=== PATIENT | male | born 1960 | race Caucasian/White ===

== ENCOUNTER 2018-09-15 06:34 | Emergency (ER) | payer OTHER ==
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
== END 2018-09-15 09:01 | disposition home or self-care (01) ==
LOC: ER 06:34
DX: M25.512 Pain in left shoulder (principal); V49.9XXA Car occupant (driver) (passenger) injured in unspecified traffic accident, initial encounter; Z88.2 Allergy status to sulfonamides; I10 Essential (primary) hypertension
CPT/HCPCS: 99283

== ENCOUNTER 2020-02-23 11:25 | Emergency (ER) | payer OTHER ==
[2020-02-23] MEDS ORDERED: HYDROCODONE/CHLORPHEN 5 ML/OSYR ONE (13:04)
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
--- NOTE | 2020-02-23 14:54 | ER ---
Nurse's Notes [facility] Name: Niall Perdue Age: 60 yrs Sex: Male : 1960 Arrival Date: 02/23/2020 Time: 11:28 Bed 17 Private MD: Demetri Kruse Diagnosis: Pneumonia due to SARS-associated coronavirus Presentation: 02/22 12:17 Chief complaint: Patient states: Diagnosed with COVID-19 at [place] [facility] approximately 1 aa5 week ago. Pt c/o non-productive cough, fever on and off up to 100.0*F, O2 sat 85-94% at home, and "not being able to take a deep breath without it making me cough". Pt denies nausea/vomiting/diarrhea, denies pain. 12:17 Coronavirus screen: Client presents with at least one sign or symptom that may indicate aa5 coronavirus-19. Standard/surgical mask placed on the client. Provider contacted for isolation considerations. Client reports previous positive COVID test result. Ebola Screen: Patient negative for fever greater than or equal to 101.5 degrees Fahrenheit, and additional compatible Ebola Virus Disease symptoms. Initial Sepsis Screen: Does the patient meet any 2 criteria? No. Patient's initial sepsis screen is negative. Does the patient have a suspected source of infection? Yes:. Risk Assessment: Do you want to hurt yourself or someone else? Patient reports no desire to harm self or others. Onset of symptoms was January 2020. 12:17 Acuity: RAYMOND 3 aa5 12:17 Method Of Arrival: Ambulatory aa5 Historical: - Allergies: 12:17 Sulfa (Sulfonamide Antibiotics); aa5 - PMHx: 12:17 psoriasis; Hypertension; aa5 - PSHx: 12:17 Knee surgery; back; Rotator cuff; Hernia repair; aa5 - Immunization history:: Adult Immunizations unknown. - Social history:: Smoking status: Patient denies any tobacco usage or history of. Screenin:25 Abuse screen: Denies threats or abuse. Denies injuries from another. Nutritional ca1 screening: No deficits noted. Tuberculosis screening: No symptoms or risk factors identified. Fall Risk None identified. Assessment: 12:25 General: Appears in no apparent distress. comfortable, Behavior is calm, cooperative, ca1 appropriate for age. Pain: Denies pain. Neuro: Level of Consciousness is awake, alert, obeys commands, Oriented to person, place, time, situation. Cardiovascular: Heart tones S1 S2 present Capillary refill < 3 seconds Patient's skin is warm and dry. Rhythm is regular. Respiratory: Airway is patent Respiratory effort is even, unlabored, Respiratory: Reports shortness of breath on exertion cough that is. GI: Abdomen is round non-distended, Bowel sounds present X 4 quads. Abd is soft and non tender X 4 quads. : No signs and/or symptoms were reported regarding the genitourinary system. EENT: No signs and/or symptoms were reported regarding the EENT system. Derm: Skin is intact, is healthy with good turgor, Skin is pink, warm \\T\\ dry. Musculoskeletal: Circulation, motion, and sensation intact. Capillary refill < 3 seconds. 14:04 Reassessment: Patient appears in no apparent distress at this time. Patient and/or ca1 family updated on plan of care and expected duration. Pain level reassessed. Patient is alert, oriented x 3, equal unlabored respirations, skin warm/dry/pink. 14:45 Reassessment: Patient appears in no apparent distress at this time. Patient is alert, ca1 oriented x 3, equal unlabored respirations, skin warm/dry/pink. 15:27 Reassessment: Patient appears in no apparent distress at this time. Patient is alert, ca1 oriented x 3, equal unlabored respirations, skin warm/dry/pink. Vital Signs: 12:17 BP 103 / 67; Pulse 87; Resp 16 S; Temp 99.5(O); Pulse Ox 94% on R/A; Weight 115.67 kg aa5 (R); Height 5 ft. 9 in. (175.26 cm) (R); Pain 0/10; 14:04 BP 108 / 62; Pulse 68; Resp 16 S; Pulse Ox 100% on R/A; ca1 14:45 BP 109 / 64; Pulse 69; Resp 18 S; Pulse Ox 95% on R/A; ca1 14:47 Pulse Ox 96% on R/A; jp3 15:27 BP 127 / 84; Pulse 73; Resp 16 S; Pulse Ox 97% on R/A; ca1 12:17 Body Mass Index 37.66 (115.67 kg, 175.26 cm) aa5 14:47 Walked pt around to see 02 saturation during movement jp3 ED Course: 11:28 Patient arrived in ED. ag5 11:28 Demetri Kruse MD is Private Physician. ag5 11:54 Angeline John FNP-C [facility]. snw 11:54 Dale Rodrigues MD is Attending Physician. snw 12:17 Arm band placed on Patient placed in an exam room, on a stretcher. aa5 12:21 Lisa Caro, CHARISMA is Primary Nurse. ca1 12:25 Patient has correct armband on for positive identification. Placed in gown. Bed in low ca1 position. Call light in reach. Side rails up X2. Pulse ox on. NIBP on. Warm blanket given. 12:25 No provider procedures requiring assistance completed. ca1 12:29 Triage completed. aa5 12:55 Initial lab(s) drawn, by me, held in ED. Inserted saline lock: 20 gauge in right ca1 antecubital area, using aseptic technique. Blood collected. 13:36 CT Chest For PE Angio In Process Unspecified. EDMS 14:53 Demetri Kruse MD is Referral Physician. snw 15:28 IV discontinued, intact, bleeding controlled, No redness/swelling at site. Pressure ca1 dressing applied. Administered Medications: 12:50 Drug: Tussionex Pennkinetic ER 5 ml Route: PO; ca1 14:47 Follow up: Response: No adverse reaction; Marked relief of symptoms ca1 15:19 Drug: SOLU-Medrol 80 mg {Note: given IV per provider, RAC.} Route: IM; Site: Other; ca1 Outcome: 14:53 Discharge ordered by . snw 15:28 Discharged to home ambulatory. ca1 15:28 Condition: stable 15:28 Discharge instructions given to patient, Instructed on discharge instructions, follow up and referral plans. medication usage, Demonstrated understanding of instructions, follow-up care, medications, Prescriptions given X 1. 15:28 Patient left the ED. ca1 Signatures: Dispatcher [employer] EDMS Angeline John FNP-C [employer] Breanna Pederson, RN RN aa5 Rell Prajapati jp3 Lisa Caro RN RN ca1 Joon Castillo ag5
--- NOTE | 2020-02-23 14:54 | EDPHYS ---
Physician Documentation [facility] Name: Niall Perdue Age: 60 yrs Sex: Male : 1960 Arrival Date: 02/23/2020 Time: 11:28 Bed 17 Private MD: Demetri Kruse ED Physician Dale Rodrigues HPI: 02/22 15:02 This 60 yrs old Male presents to ER via Ambulatory with complaints of snw Breathing Difficulty, COVID+. 15:02 The patient has shortness of breath at rest. Onset: The symptoms/episode began/occurred snw dx with CoVid 19 last week. Finished Z-max and Decadron. + fever, painful cough continues. Duration: The symptoms are continuous. Associated signs and symptoms: Pertinent positives: chest pain, non-productive cough, fever. Severity of symptoms: At their worst the symptoms were moderate. The patient has experienced a previous episode. dx with CoVid. Historical: - Allergies: 12:17 Sulfa (Sulfonamide Antibiotics); aa5 - PMHx: 12:17 psoriasis; Hypertension; aa5 - PSHx: 12:17 Knee surgery; back; Rotator cuff; Hernia repair; aa5 - Immunization history:: Adult Immunizations unknown. - Social history:: Smoking status: Patient denies any tobacco usage or history of. ROS: 15:01 Eyes: Negative for injury, pain, redness, and discharge, ENT: Negative for injury, snw pain, and discharge, Neck: Negative for injury, pain, and swelling, Abdomen/GI: Negative for abdominal pain, nausea, vomiting, diarrhea, and constipation, Back: Negative for injury and pain, : Negative for injury, bleeding, discharge, and swelling, MS/Extremity: Negative for injury and deformity, Skin: Negative for injury, rash, and discoloration, Neuro: Negative for headache, weakness, numbness, tingling, and seizure. 15:01 Constitutional: Positive for body aches, fever, malaise. 15:01 Cardiovascular: Positive for chest pain, with cough. 15:01 Respiratory: Positive for cough, shortness of breath, at rest. Exam: 14:23 Head/Face: Normocephalic, atraumatic. Eyes: Pupils equal round and reactive to light, snw extra-ocular motions intact. Lids and lashes normal. Conjunctiva and sclera are non-icteric and not injected. Cornea within normal limits. Periorbital areas with no swelling, redness, or edema. ENT: Nares patent. No nasal discharge, no septal abnormalities noted. Tympanic membranes are normal and external auditory canals are clear. Oropharynx with no redness, swelling, or masses, exudates, or evidence of obstruction, uvula midline. Mucous membranes moist. Neck: Trachea midline, no thyromegaly or masses palpated, and no cervical lymphadenopathy. Supple, full range of motion without nuchal rigidity, or vertebral point tenderness. No Meningismus. Chest/axilla: Normal chest wall appearance and motion. Nontender with no deformity. No lesions are appreciated. Cardiovascular: Regular rate and rhythm with a normal S1 and S2. No gallops, murmurs, or rubs. Normal PMI, no JVD. No pulse deficits. Abdomen/GI: Soft, non-tender, with normal bowel sounds. No distension or tympany. No guarding or rebound. No evidence of tenderness throughout. Back: No spinal tenderness. No costovertebral tenderness. Full range of motion. Skin: Warm, dry with normal turgor. Normal color with no rashes, no lesions, and no evidence of cellulitis. MS/ Extremity: Pulses equal, no cyanosis. Neurovascular intact. Full, normal range of motion. Neuro: Awake and alert, GCS 15, oriented to person, place, time, and situation. Cranial nerves II-XII grossly intact. Motor strength 5/5 in all extremities. Sensory grossly intact. Cerebellar exam normal. Normal gait. Psych: Awake, alert, with orientation to person, place and time. Behavior, mood, and affect are within normal limits. 14:23 Constitutional: The patient appears alert, awake, anxious, uncomfortable. 14:23 Respiratory: the patient does not display signs of respiratory distress, Respirations: shallow respirations, that is moderate, Breath sounds: bronchial sounds, that are mild, are heard diffusely. Vital Signs: 12:17 BP 103 / 67; Pulse 87; Resp 16 S; Temp 99.5(O); Pulse Ox 94% on R/A; Weight 115.67 kg aa5 (R); Height 5 ft. 9 in. (175.26 cm) (R); Pain 0/10; 14:04 BP 108 / 62; Pulse 68; Resp 16 S; Pulse Ox 100% on R/A; ca1 14:45 BP 109 / 64; Pulse 69; Resp 18 S; Pulse Ox 95% on R/A; ca1 14:47 Pulse Ox 96% on R/A; jp3 15:27 BP 127 / 84; Pulse 73; Resp 16 S; Pulse Ox 97% on R/A; ca1 12:17 Body Mass Index 37.66 (115.67 kg, 175.26 cm) aa5 14:47 Walked pt around to see 02 saturation during movement jp3 MDM: 12:52 Patient medically screened. snw 15:02 Data reviewed: vital signs, nurses notes. Data interpreted: Pulse oximetry: on room air snw is 96 %. Interpretation: acceptable. Counseling: I had a detailed discussion with the patient and/or guardian regarding: the historical points, exam findings, and any diagnostic results supporting the discharge/admit diagnosis, radiology results, the need for outpatient follow up, to return to the emergency department if symptoms worsen or persist or if there are any questions or concerns that arise at home. Special discussion: Based on the history and exam findings, there is no indication for further emergent testing or inpatient evaluation. I discussed with the patient/guardian the need to see the primary care provider for further evaluation of the symptoms. 02/22 12:46 Order name: CT Chest For PE Angio; Complete Time: 14:06 snw Administered Medications: 12:50 Drug: Tussionex Pennkinetic ER 5 ml Route: PO; ca1 14:47 Follow up: Response: No adverse reaction; Marked relief of symptoms ca1 15:19 Drug: SOLU-Medrol 80 mg {Note: given IV per provider, RAC.} Route: IM; Site: Other; ca1 Disposition: 18:04 Co-signature as Attending Physician, Dale Rodrigues MD I agree with the assessment and kdr plan of care. Disposition: 02/23/20 14:53 Discharged to Home. Impression: Pneumonia due to SARS-associated coronavirus. - Condition is Stable. - Discharge Instructions: Severe Acute Respiratory Syndrome (SARS), Aspirin and Your Heart, Rehydration, Adult, COVID-19. - Prescriptions for Prednisone 20 mg Oral Tablet - take 2 tablet by ORAL route once daily for 5 days; 10 tablet. - Medication Reconciliation Form, Thank You Letter, Antibiotic Education, Prescription Opioid Use form. - Follow up: Demetri Kruse MD; When: 7 - 10 days; Reason: Recheck today's complaints, Continuance of care, Re-evaluation by your physician. Follow up: Emergency Department; When: As needed; Reason: Worsening of condition. Signatures: Dispatcher [employer] EDMS Dale Rodrigues MD MD [facility] Angeline John, CITY DRIVER-C CITY DRIVER-Csnw Breanna Pederson, RN RN aa5 Lisa Caro RN RN ca1 Corrections: (The following items were deleted from the chart) 15:28 14:53 02/23/2020 14:53 Discharged to Home. Impression: Pneumonia due to SARS-associated ca1 coronavirus. Condition is Stable. Forms are Medication Reconciliation Form, Thank You Letter, Antibiotic Education, Prescription Opioid Use. Follow up: Demetri Kruse; When: 7 - 10 days; Reason: Recheck today's complaints, Continuance of care, Re-evaluation by your physician. Follow up: Emergency Department; When: As needed; Reason: Worsening of condition. snw
[2020-02-23] MEDS ORDERED: METHYLPREDNISOLONE 40 MG INJ ONE (15:31)
[2020-02-23 15:34] VITALS: TEMP 99.5
[2020-02-23 15:38] VITALS: BP 127/84; O2SAT 97
== END 2020-02-23 15:28 | disposition home or self-care (01) ==
LOC: ER 11:25
DX: U07.1 COVID-19 (principal); J12.89 Other viral pneumonia; I10 Essential (primary) hypertension; Z88.2 Allergy status to sulfonamides
CPT/HCPCS: 82565; 71275; 96372; 99284; Q9967; J2920

== ENCOUNTER 2020-02-25 10:02 | Emergency (ER) | payer OTHER ==
[2020-02-25 12:29] LABS: Absolute Lymphocytes (CBC) 0.6 K/uL (0.7-4.9); Hematocrit 43.6 % (39.6-49.0); Lymphocytes % 4.1 % (15.3-44.8); MPV 7.3 fL (7.6-11.3); RBC Red Blood Cell Count 4.99 M/uL (4.33-5.43)
[2020-02-25 12:50] LABS: Albumin 3.3 g/dL (3.4-5.0); Bilirubin Total 0.5 mg/dL (0.2-1.0); C-Reactive Protein 60.9 mg/L (<3.00); Protein, Total 7.5 g/dL (6.4-8.2)
[2020-02-25] MEDS ORDERED: NA CHLORIDE 0.9% 1,000 ML ONE (13:14)
--- NOTE | 2020-02-25 13:19 | RAD REPORT ---
EXAM DESCRIPTION: RAD - Chest Single View - 02/25/2020 12:21 pm CLINICAL HISTORY: COUGH, COVID positive COMPARISON: Two view chest January 2019 TECHNIQUE: AP portable chest image was obtained 02/25/2020 12:21 pm . FINDINGS: Lung volumes are very low. Interstitial and alveolar opacification is scattered in both malina ng marroquin generally sparing each apex. This is believed to be true airspace disease and not artifact of shallow inspiration. Given the provided history, COVID-19 pneumonia is most likely. Trachea is mid line. Heart and vasculature are normal. No measurable pleural effusion and no pneumothorax. No acute bony abnormality seen. No acute aortic findings suspected. IMPRESSION: Bilateral airspace disease. Given the provided history this is most likely COVID-19 pneu monia.
[2020-02-25 13:20] LABS: Blood Morphology Comment NOT SEEN (NOT SEEN); Platelet Estimate ADEQ; White Blood Cell Scan OK (OK)
--- NOTE | 2020-02-25 15:23 | EDPHYS ---
Physician Documentation [facility] Name: Niall Perdue Age: 60 yrs Sex: Male : 1960 Arrival Date: 02/25/2020 Time: 10:02 Bed DIS13 Private MD: ED Physician Mauro Claire HPI: 02/24 10:56 This 60 yrs old Male presents to ER via Ambulatory with complaints of jmm Shortness Of Breath - covid+. 10:56 The patient has shortness of breath at rest. Onset: The symptoms/episode began/occurred jmm gradually. Duration: The symptoms are continuous. The patient's shortness of breath is aggravated by nothing, is alleviated by nothing. This is a 60 year old male with a history of htn that presents to the ED with complaints of ongoing shortness of breath. Patient states he was diagnosed with covid 19 roughly 10 days ago. Patient is taking prednisone with little relief of symptoms. Patient home pulse ox was in the mid 80's. . Historical: - Allergies: 10:54 Sulfa (Sulfonamide Antibiotics); iw - Home Meds: 15:12 BP med [Active]; Stelara subcutaneous [Active]; ae4 - PMHx: 10:54 Hypertension; psoriasis; iw - PSHx: 10:54 Knee surgery; back; Rotator cuff; Hernia repair; iw - Immunization history:: Adult Immunizations up to date. - Social history:: Smoking status: Patient denies any tobacco usage or history of. ROS: 10:56 Constitutional: Positive for body aches, chills. jmm 10:56 Respiratory: Positive for cough, shortness of breath. 10:56 Abdomen/GI: Negative for vomiting. 10:56 All other systems are negative. Exam: 10:56 Constitutional: This is a well developed, well nourished patient who is awake, alert, jmm and in no acute distress. Head/Face: atraumatic. Eyes: EOMI, no conjunctival erythema appreciated ENT: Moist Mucus Membranes Neck: Trachea midline, Supple Chest/axilla: Normal chest wall appearance and motion. Cardiovascular: Regular rate and rhythm. No edema appreciated Respiratory: Normal respirations, no respiratory distress appreciated Abdomen/GI: Non distended, soft Back: Normal ROM Skin: General appearance color normal MS/ Extremity: Moves all extremities, no obvious deformities appreciated, no edema noted to the lower extremities Neuro: Awake and alert, normal gait Psych: Behavior is normal, Mood is normal, Patient is cooperative and pleasant Vital Signs: 10:51 BP 109 / 67; Pulse 70; Resp 18 S; Temp 96.7; Pulse Ox 94% on R/A; Weight 117.93 kg; iw Height 5 ft. 9 in. (175.26 cm); 13:18 BP 104 / 62; Pulse 63; Resp 16; Pulse Ox 95% on R/A; ae4 14:42 BP 110 / 61; Pulse 65; Resp 17; Pulse Ox 96% on R/A; ae4 15:12 BP 177 / 82; Pulse 85; Resp 22; Pulse Ox 100% on R/A; ae4 10:51 Body Mass Index 38.39 (117.93 kg, 175.26 cm) iw MDM: 11:14 Patient medically screened. [facility] 15:21 Data reviewed: vital signs, nurses notes. ED course: Patient is alert and non toxic in [facility] appearance in the ED. Patient is advised to follow up with pcp for reevaluation. Patient given strict return precautions. patient understood and agrees with the plan of care. . 02/24 10:56 Order name: CBC with Diff; Complete Time: 13:24 [facility] 02/24 10:56 Order name: CMP; Complete Time: 12:52 [facility] 02/24 10:56 Order name: CRP; Complete Time: 12:52 [facility] 02/24 10:56 Order name: Chest Single View XRAY; Complete Time: 13:24 [facility] 02/24 13:21 Order name: CBC Smear Scan; Complete Time: 13:24 [facility] 02/24 10:56 Order name: Saline Lock; Complete Time: 13:24 [facility] Administered Medications: 13:00 Drug: NS 0.9% 1000 ml Route: IV; Rate: 1 bolus; Site: left antecubital; ae4 Disposition: 16:37 Co-signature as Attending Physician, Mauro Claire MD. rn Disposition: 02/25/20 15:22 Discharged to Home. Impression: Dehydration, Coronavirus infection, unspecified. - Condition is Stable. - Discharge Instructions: Dehydration, Adult, COVID-19. - Medication Reconciliation Form, Thank You Letter, Antibiotic Education, Prescription Opioid Use form. - Follow up: Private Physician; When: 2 - 3 days; Reason: Recheck today's complaints, Continuance of care, Re-evaluation by your physician. - Notes: Please take -10,000 IU of Vitamin D3 daily -1000 MG of NAC twice a day -500 MG of Quercetin twice a day -50 mg of Zinc daily Signatures: Dispatcher [employer] EDMS Chandana Zaragoza PA PA jmm Williams, Irene, RN RN iw Nieto, Roman, MD MD rn Elliott, Andrea, RN RN ae4 Corrections: (The following items were deleted from the chart) 16:11 15:22 02/25/2020 15:22 Discharged to Home. Impression: Dehydration; Coronavirus ae4 infection, unspecified. Condition is Stable. Forms are Medication Reconciliation Form, Thank You Letter, Antibiotic Education, Prescription Opioid Use. Follow up: Private Physician; When: 2 - 3 days; Reason: Recheck today's complaints, Continuance of care, Re-evaluation by your physician. david
--- NOTE | 2020-02-25 15:23 | ER ---
Nurse's Notes [facility] Name: Niall Perdue Age: 60 yrs Sex: Male : 1960 Arrival Date: 02/25/2020 Time: 10:02 Bed DIS13 Private MD: Diagnosis: Dehydration;Coronavirus infection, unspecified Presentation: 02/24 10:52 Chief complaint: Patient states: tested positive for COVID Wednesday before Jagruti, iw has been SOB and cough. Coronavirus screen: Client reports previous positive COVID test result. Ebola Screen: Patient negative for fever greater than or equal to 101.5 degrees Fahrenheit, and additional compatible Ebola Virus Disease symptoms Patient denies exposure to infectious person. Patient denies travel to an Ebola-affected area in the 21 days before illness onset. No symptoms or risks identified at this time. Initial Sepsis Screen: Does the patient meet any 2 criteria? No. Patient's initial sepsis screen is negative. Does the patient have a suspected source of infection? No. Patient's initial sepsis screen is negative. Risk Assessment: Do you want to hurt yourself or someone else? Patient reports no desire to harm self or others. 10:52 Method Of Arrival: Ambulatory iw 10:52 Acuity: RAYMOND 3 iw 19:17 Onset of symptoms was February 23, 2020 at 08:00. ae4 Triage Assessment: 11:30 General: Behavior is calm, cooperative. Respiratory: Reports shortness of breath at ae4 rest on exertion Onset: The symptoms/episode began/occurred gradually, the patient has moderate shortness of breath. 16:11 General: Appears. ae4 Historical: - Allergies: 10:54 Sulfa (Sulfonamide Antibiotics); iw - Home Meds: 15:12 BP med [Active]; Stelara subcutaneous [Active]; ae4 - PMHx: 10:54 Hypertension; psoriasis; iw - PSHx: 10:54 Knee surgery; back; Rotator cuff; Hernia repair; iw - Immunization history:: Adult Immunizations up to date. - Social history:: Smoking status: Patient denies any tobacco usage or history of. Screenin:45 Abuse screen: Denies threats or abuse. Nutritional screening: No deficits noted. ae4 Tuberculosis screening: No symptoms or risk factors identified. Fall Risk None identified. Assessment: 11:00 General: Appears in no apparent distress. comfortable, obese, Behavior is calm, ae4 cooperative. Neuro: Level of Consciousness is awake, alert, obeys commands, Oriented to person, place, time, situation, Appropriate for age. Cardiovascular: Patient's skin is warm and dry. Respiratory: Airway is patent Respiratory effort is even, unlabored, Respiratory pattern is regular, symmetrical, Breath sounds are diminished bilaterally. GI: Abdomen is round obese. : No signs and/or symptoms were reported regarding the genitourinary system. EENT: No signs and/or symptoms were reported regarding the EENT system. Derm: Skin is pale. Musculoskeletal: Reports Patient reports generalized weakness and fatigue. 13:33 Respiratory: Airway is patent. ae4 13:51 Reassessment: Provider at bedside discussing plan of care. ae4 15:02 Reassessment: Urinal provided for patient to urinate. ae4 15:11 Pain: Denies pain. Cardiovascular: Rhythm is regular. ae4 Vital Signs: 10:51 BP 109 / 67; Pulse 70; Resp 18 S; Temp 96.7; Pulse Ox 94% on R/A; Weight 117.93 kg; iw Height 5 ft. 9 in. (175.26 cm); 13:18 BP 104 / 62; Pulse 63; Resp 16; Pulse Ox 95% on R/A; ae4 14:42 BP 110 / 61; Pulse 65; Resp 17; Pulse Ox 96% on R/A; ae4 15:12 BP 177 / 82; Pulse 85; Resp 22; Pulse Ox 100% on R/A; ae4 10:51 Body Mass Index 38.39 (117.93 kg, 175.26 cm) iw ED Course: 10:02 Patient arrived in ED. as 10:45 Chandana Zaragoza PA is PHCP. jmm 10:45 Mauro Claire MD is Attending Physician. jmm 10:53 Triage completed. iw 11:45 Bed in low position. Call light in reach. Side rails up X 1. Pulse ox on. NIBP on. Warm ae4 blanket given. 12:21 Murray Cornejo, CHARISMA is Primary Nurse. ae4 12:21 Chest Single View XRAY In Process Unspecified. EDMS 13:33 Inserted saline lock: 18 gauge in left antecubital area, using aseptic technique. ae4 ,using aseptic technique. By [facility] Blood collected. 14:43 Arm band placed on. ae4 16:10 No provider procedures requiring assistance completed. IV discontinued, intact, ae4 bleeding controlled, No redness/swelling at site. Pressure dressing applied. Administered Medications: 13:00 Drug: NS 0.9% 1000 ml Route: IV; Rate: 1 bolus; Site: left antecubital; ae4 Outcome: 15:22 Discharge ordered by MD. hernandez 16:11 Patient left the ED. ae4 16:11 Condition: stable ae4 16:11 Discharge instructions given to patient, Instructed on discharge instructions, follow up and referral plans. Demonstrated understanding of instructions. 19:16 Discharged to ae4 Signatures: Dispatcher [employer] EDMS Chandana Zaragoza PA PA jmm Martinez, Amelia as Williams, Irene, CHARISMA RN Murray Cornejo RN RN ae4 Corrections: (The following items were deleted from the chart) 10:54 10:51 Resp 18bpm; Spontaneous; Pulse Ox 94% RA; Temp 96.7F; iw antonia
[2020-02-25 16:19] VITALS: TEMP 96.7
[2020-02-25 16:23] VITALS: BP 177/82; O2SAT 100
== END 2020-02-25 16:11 | disposition home or self-care (01) ==
LOC: ER 10:02
DX: E86.0 Dehydration (principal); Z86.19 Personal history of other infectious and parasitic diseases; I10 Essential (primary) hypertension; Z88.2 Allergy status to sulfonamides
CPT/HCPCS: 36415; 71045; 80053; 85025; 86140; 99284; J7030

== ENCOUNTER 2020-02-26 21:59 | Inpatient (IN) | payer OTHER ==
[2020-02-26 23:33] LABS: Absolute Lymphocytes (CBC) 0.9 K/uL (0.7-4.9); Basophils % 0.1 % (0-1.3); Hematocrit 41.8 % (39.6-49.0); Lymphocytes % 7.8 % (15.3-44.8); MPV 7.1 fL (7.6-11.3); Protime INR 1.08
[2020-02-26] MEDS ORDERED: METHYLPREDNISOLONE 125 MG INJ ONE (23:39)
[2020-02-26 23:56] LABS: ALT/SGPT 17 U/L (12-78); AST/SGOT 41 U/L (15-37); Albumin 2.8 g/dL (3.4-5.0); Alkaline Phosphatase 56 U/L (45-117); BUN Blood Urea Nitrogen 21 mg/dL (7-18); Bicarbonate 24 mmol/L (21-32); Bilirubin Direct 0.1 mg/dL (0-0.2); Bilirubin Total 0.5 mg/dL (0.2-1.0); Ferritin 527.1 ng/mL (26-388); Glucose Level 125 mg/dL (74-106); Magnesium 2.4 mg/dL (1.8-2.4); NT PRO-BNP 174 pg/mL (<125); Potassium 4.3 mmol/L (3.5-5.1); Protein, Total 6.9 g/dL (6.4-8.2); Sodium Level 135 mmol/L (136-145); Troponin (Emerg Dept Use Only) < 0.02 ng/mL (0.0-0.045)
--- NOTE | 2020-02-27 00:13 | ER ---
Nurse's Notes [facility] Name: Niall Perdue Age: 60 yrs Sex: Male : 1960 Arrival Date: 02/26/2020 Time: 22:01 Bed 16 Private MD: Diagnosis: Pneumonia due to other specified infectious organisms;Coronavirus infection, unspecified;Hypoxemia Presentation: 02/25 22:00 Chief complaint: EMS states: PT tested covid positive on the . Has been complaining jb4 of shortness of breath since and tonight it got worse. He was in the low 80's at his home on room air. 22:00 Coronavirus screen: Client presents with at least one sign or symptom that may indicate jb4 coronavirus-19. Standard/surgical mask placed on the client. Client reports previous positive COVID test result. Ebola Screen: No symptoms or risks identified at this time. Initial Sepsis Screen: Does the patient meet any 2 criteria? No. Patient's initial sepsis screen is negative. Does the patient have a suspected source of infection? No. Patient's initial sepsis screen is negative. Risk Assessment: Do you want to hurt yourself or someone else? Patient reports no desire to harm self or others. Onset of symptoms was February 17, 2020. Transition of care: patient was not received from another setting of care. 22:00 Method Of Arrival: EMS: [facility] jb4 22:00 Acuity: RAYMOND 3 jb4 Historical: - Allergies: 22:00 Sulfa (Sulfonamide Antibiotics); jb4 - Home Meds: 22:00 Stelara subcutaneous [Active]; Micardis Oral [Active]; jb4 - PMHx: 22:00 Hypertension; psoriasis; Hernia; jb4 - PSHx: 22:00 Knee surgery; Hernia repair; Rotator cuff; back; jb4 - Immunization history:: Adult Immunizations up to date. - Social history:: Smoking status: Patient denies any tobacco usage or history of. Patient/guardian denies using alcohol, street drugs. Screenin:00 Abuse screen: Denies threats or abuse. Nutritional screening: No deficits noted. jb4 Tuberculosis screening: No symptoms or risk factors identified. Fall Risk None identified. Assessment: 22:00 General: Appears in no apparent distress. uncomfortable, Behavior is calm, cooperative, jb4 appropriate for age. Pain: Denies pain. Neuro: Level of Consciousness is awake, alert, obeys commands, Oriented to person, place, time, situation. Cardiovascular: Patient's skin is warm and dry. Respiratory: Airway is patent Respiratory effort is even, unlabored, Respiratory pattern is regular, symmetrical, Breath sounds with crackles bilaterally. GI: No signs and/or symptoms were reported involving the gastrointestinal system. : No signs and/or symptoms were reported regarding the genitourinary system. EENT: No signs and/or symptoms were reported regarding the EENT system. Derm: Skin is intact, Skin is pink, warm \T\ dry. Musculoskeletal: Circulation, motion, and sensation intact. Range of motion: intact in all extremities. 23:00 Reassessment: Patient appears in no apparent distress at this time. Patient and/or jb4 family updated on plan of care and expected duration. Pain level reassessed. Patient is alert, oriented x 3, equal unlabored respirations, skin warm/dry/pink. 02/26 00:01 Reassessment: Patient appears in no apparent distress at this time. Patient and/or jb4 family updated on plan of care and expected duration. Pain level reassessed. Patient is alert, oriented x 3, equal unlabored respirations, skin warm/dry/pink. 01:00 Reassessment: Patient appears in no apparent distress at this time. Patient and/or jb4 family updated on plan of care and expected duration. Pain level reassessed. Patient is alert, oriented x 3, equal unlabored respirations, skin warm/dry/pink. 02:00 Reassessment: Patient appears in no apparent distress at this time. Patient and/or jb4 family updated on plan of care and expected duration. Pain level reassessed. Patient is alert, oriented x 3, equal unlabored respirations, skin warm/dry/pink. Vital Signs: 02/25 22:00 BP 113 / 53; Pulse 66; Resp 20 S; Temp 97.6(TE); Pulse Ox 87% on R/A; Weight 113.4 kg jb4 (R); Height 5 ft. 9 in. (175.26 cm) (R); Pain 0/10; 02/26 00:01 BP 103 / 67; Pulse 62; Resp 20; Pulse Ox 95% on NC; jb4 01:45 BP 140 / 79; Pulse 56; Resp 16; Pulse Ox 97% on NC; jb4 02:30 BP 130 / 87; Pulse 63; Resp 16; Pulse Ox 95% on NC; jb4 02/25 22:00 Body Mass Index 36.92 (113.40 kg, 175.26 cm) jb4 ED Course: 02/25 22:00 Patient has correct armband on for positive identification. Placed in gown. Bed in low jb4 position. Call light in reach. Side rails up X 1. Pulse ox on. NIBP on. 22:01 Patient arrived in ED. cl3 22:11 Esdras Pepe, RN is Primary Nurse. jb4 22:17 Triage completed. jb4 22:18 Arm band placed on right wrist. jb4 22:20 Vijay Bender PA is PHCP. cp 22:20 Vijay Rivera MD is Attending Physician. cp 22:43 XRAY Chest (1 view) In Process Unspecified. EDMS 02/26 00:11 Yehuda Garay is Hospitalizing Provider. cp 02:00 No provider procedures requiring assistance completed. Patient admitted, IV remains in jb4 place. Administered Medications: 02/25 23:41 Drug: SOLU-Medrol 125 mg Route: IVP; Site: left antecubital; jb4 02/26 00:10 Follow up: Response: No adverse reaction jb4 00:52 Drug: LevaQUIN 750 mg Volume: 150 ml; Route: IVPB; Infused Over: 90 mins; Site: left jb4 antecubital; 02:22 Follow up: Response: No adverse reaction; IV Status: Completed infusion; IV Intake: jb4 150ml Intake: 02:22 IV: 150ml; Total: 150ml. jb4 Outcome: 00:12 Decision to Hospitalize by Provider. cp 02:00 Admitted to ER Hold. Please see [facility] for further documentation. jb4 02:00 Condition: stable 02:00 Discharge instructions given to patient, Instructed on the need for admit, Demonstrated understanding of instructions. 05:30 Discharge instructions given to patient, Instructed on the need for admit, Demonstrated jb4 understanding of instructions. 05:30 Admitted to Tele accompanied by nurse, via stretcher, room 431, with oxygen, with jb4 chart, Report called to CHARISMA Khan 05:30 Condition: stable 05:31 Patient left the ED. mg2 Signatures: Dispatcher [employer] EDMS Vijay Bender PA PA cp Bryson, James, RN RN jb4 Victoriano Lisa, RN RN mg2 Edi Dewitt cl3
--- NOTE | 2020-02-27 00:14 | EDPHYS ---
Physician Documentation [facility] Name: Niall Perdue Age: 60 yrs Sex: Male : 1960 Arrival Date: 02/26/2020 Time: 22:01 Bed 16 Private MD: ED Physician Vijay Rivera HPI: 02/25 22:30 This 60 yrs old Male presents to ER via EMS with complaints of Low 02. cp 22:30 The patient or guardian reports cough, described as moderate, with productive sputum, cp that is purulent, difficulty breathing. Onset: The symptoms/episode began/occurred gradually, and became worse today. 22:30 Associated signs and symptoms: Pertinent positives: fever, Pertinent negatives: chest cp pain, diarrhea, vomiting. Historical: - Allergies: 22:00 Sulfa (Sulfonamide Antibiotics); jb4 - Home Meds: 22:00 Stelara subcutaneous [Active]; Micardis Oral [Active]; jb4 - PMHx: 22:00 Hypertension; psoriasis; Hernia; jb4 - PSHx: 22:00 Knee surgery; Hernia repair; Rotator cuff; back; jb4 - Immunization history:: Adult Immunizations up to date. - Social history:: Smoking status: Patient denies any tobacco usage or history of. Patient/guardian denies using alcohol, street drugs. ROS: 22:35 Respiratory: Positive for cough, shortness of breath, at rest. cp 22:35 Eyes: Negative for injury, pain, redness, and discharge. cp 22:35 Constitutional: Negative for body aches, chills, fever, poor PO intake. 22:35 ENT: Negative for ear pain, sore throat, difficulty swallowing, difficulty handling secretions. 22:35 Cardiovascular: Negative for chest pain, edema, palpitations. 22:35 Abdomen/GI: Negative for abdominal pain, nausea, vomiting, and diarrhea. 22:35 Back: Negative for radiated pain. 22:35 Neuro: Negative for altered mental status, headache, weakness. 22:35 All other systems are negative. Exam: 22:45 Constitutional: The patient appears alert, awake, non-diaphoretic, non-toxic, well cp developed, well nourished, in obvious distress, moderately distressed. 22:45 Head/Face: Normocephalic, atraumatic. cp 23:42 ECG was reviewed by the Attending Physician. Vital Signs: 22:00 BP 113 / 53; Pulse 66; Resp 20 S; Temp 97.6(TE); Pulse Ox 87% on R/A; Weight 113.4 kg jb4 (R); Height 5 ft. 9 in. (175.26 cm) (R); Pain 0/10; 02/26 00:01 BP 103 / 67; Pulse 62; Resp 20; Pulse Ox 95% on NC; jb4 01:45 BP 140 / 79; Pulse 56; Resp 16; Pulse Ox 97% on NC; jb4 02:30 BP 130 / 87; Pulse 63; Resp 16; Pulse Ox 95% on NC; jb4 02/25 22:00 Body Mass Index 36.92 (113.40 kg, 175.26 cm) jb4 MDM: 02/25 22:21 Patient medically screened. 02/26 00:10 Physician consultation: Reji CERVANTES was contacted at 00:10, regarding admission, cp to the telemetry unit. patient's condition, and will see patient in ED, shortly. 00:10 Data reviewed: vital signs, nurses notes, lab test result(s), EKG, radiologic studies, cp plain films. 00:10 Test interpretation: by ED physician or midlevel provider: ECG. Counseling: I had a cp detailed discussion with the patient and/or guardian regarding: the historical points, exam findings, and any diagnostic results supporting the discharge/admit diagnosis, lab results, radiology results, the need for further work-up and treatment in the hospital. 02/25 22:22 Order name: Basic Metabolic Panel; Complete Time: 00:00 cp 02/26 00:08 Interpretation: Normal except: NA 135; GLUC 125; BUN 21; GFR 63. 02/25 22:22 Order name: CBC with Diff; Complete Time: 02:58 cp 02/26 00:08 Interpretation: Normal except: WBC 11.7; MPV 7.1; YURY% 85.4; LYM% 7.8; NEUT A 10.0. 02/25 22:22 Order name: LFT's; Complete Time: 00:00 cp 02/26 00:09 Interpretation: Normal except: AST 41; ALB 2.8; GLOB 4.1; A/G 0.7. 02/25 22:22 Order name: Magnesium; Complete Time: 00:00 cp 02/25 22:22 Order name: NT PRO-BNP; Complete Time: 00:00 cp 02/25 22:22 Order name: PT-INR; Complete Time: 23:51 cp 02/25 22:22 Order name: Troponin (emerg Dept Use Only); Complete Time: 00:00 cp 02/25 22:22 Order name: Lactate; Complete Time: 23:51 cp 02/25 22:22 Order name: Procalcitonin; Complete Time: 00:55 cp 02/25 22:22 Order name: Blood Culture Adult (2) cp 02/25 22:22 Order name: CRP; Complete Time: 00:00 cp 02/25 22:22 Order name: Ferritin; Complete Time: 00:00 cp 02/25 22:25 Order name: Influenza Screen (a \T\ B); Complete Time: 00:55 cp 02/25 22:22 Order name: XRAY Chest (1 view) 02/25 22:22 Order name: EKG; Complete Time: 22:24 cp 02/25 22:22 Order name: Cardiac monitoring; Complete Time: 23:21 cp 02/25 22:22 Order name: EKG - Nurse/Tech; Complete Time: 23:49 cp 02/25 22:22 Order name: IV Saline Lock; Complete Time: 23:21 cp 02/25 22:22 Order name: Labs collected and sent; Complete Time: 23:21 cp 02/25 22:22 Order name: O2 Per Protocol; Complete Time: 23:21 cp 02/25 22:22 Order name: O2 Sat Monitoring; Complete Time: 23:21 02/25 23:38 Order name: Manual Differential; Complete Time: 02:58 EDMS 02/26 02:58 Interpretation: Normal except: SEGS 83; BANDS [F] 3; LYM 10. cp 02/26 01:29 Order name: SARS-COV-2 RT PCR; Complete Time: 02:58 EDMS 02/26 02:59 Interpretation: Results reviewed. EC/28 23:42 Rate is 62 beats/min. Rhythm is regular. ME interval is normal. QRS interval is normal. cp QT interval is normal. T waves are Inverted in leads aVR, V2, V3. Interpreted by me. Reviewed by me. Administered Medications: 23:41 Drug: SOLU-Medrol 125 mg Route: IVP; Site: left antecubital; jb4 02/26 00:10 Follow up: Response: No adverse reaction jb4 00:52 Drug: LevaQUIN 750 mg Volume: 150 ml; Route: IVPB; Infused Over: 90 mins; Site: left jb4 antecubital; 02:22 Follow up: Response: No adverse reaction; IV Status: Completed infusion; IV Intake: jb4 150ml Disposition: 07:25 Co-signature as Attending Physician, Vijay Rivera MD I agree with the assessment and brandon plan of care. Disposition: 02/27/20 00:12 Hospitalization ordered by Yehuda Garay for Inpatient Admission. Preliminary diagnosis are Pneumonia due to other specified infectious organisms, Coronavirus infection, unspecified, Hypoxemia. - Bed requested for Telemetry/MedSurg (Inpatient). - Status is Inpatient Admission. mg2 - Condition is Fair. - Problem is new. - Symptoms have improved. Signatures: Dispatcher [employer] [facility] Vijay Rivera MD MD cha Attema, Lee, GUARD MANAGER-C GUARD MANAGER-Cla1 Vijay Bender PA PA cp Homa Harley, CHARISMA RN Esdras Pepe RN RN jb4 Victoriano Lisa RN RN mg2 Corrections: (The following items were deleted from the chart) 02/25 23:58 22:26 CORONAVIRUS+ ordered. [facility] 02/26 01:08 00:12 Hospitalization Ordered by Yehuda Garay for Inpatient Admission. Preliminary cg diagnosis is Pneumonia due to other specified infectious organisms; Coronavirus infection, unspecified; Hypoxemia. Bed requested for Telemetry/MedSurg (Inpatient). Status is Inpatient Admission. Condition is Fair. Problem is new. Symptoms have improved. cp 05:05 01:08 02/27/2020 00:12 Hospitalization Ordered by Yehuda Garay for Inpatient cg Admission. Preliminary diagnosis is Pneumonia due to other specified infectious organisms; Coronavirus infection, unspecified; Hypoxemia. Bed requested for [facility] ER HOLD. Status is Inpatient Admission. Condition is Fair. Problem is new. Symptoms have improved. cg 05:31 05:05 02/27/2020 00:12 Hospitalization Ordered by Yehuda Garay for Inpatient mg2 Admission. Preliminary diagnosis is Pneumonia due to other specified infectious organisms; Coronavirus infection, unspecified; Hypoxemia. Bed requested for Telemetry/MedSurg (Inpatient). Status is Inpatient Admission. Condition is Fair. Problem is new. Symptoms have improved. cg
[2020-02-27] MEDS ORDERED: Levofloxacin 750mg IV 750 MG/150 ML BAG IV ONE (00:54)
--- NOTE | 2020-02-27 01:00 | P.HP ---
Certification for Inpatient Patient admitted to: Inpatient With expected LOS: >2 Midnights Patient will require the following post-hospital care: None Practitioner: I am a practitioner with admitting privileges, knowledge of patient current condition, hospital course, and medical plan of care. Services: Services provided to patient in accordance with Admission requirements found in Title 42 Section 412.3 of the Code of Federal Regulations <[email or web address] - Last Filed: 02/27/20 00:56> Patient History Date of Service: 02/27/20 Reason for admission: COVID pneumonia History of Present Illness: 53-year-old male with history of hypertension and psoriasis presents to the emergency department for shortness of breath. Patient tested positive for COVID on February 16 and has had progressive shortness of breath since then. Patient saturations in the 80s on room air, currently requiring high-flow oxygen per nasal cannula. C-reactive protein 101 ferritin 527. 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 - Family History Family History: Reviewed- Non-Contributory - Social History Smoking Status: Never smoker Alcohol use: Yes CD- Drugs: No Caffeine use: Yes Place of Residence: Home <Reji Willis - Last Filed: 02/27/20 00:56> Date of Service: 02/27/20 <Catherine Royal - Last Filed: 02/28/20 08:49> Allergies Sulfa (Sulfonamide Antibiotics) Adverse Reaction (Verified 02/27/20 02:19) Nausea/Vomiting Home Medications: Telmisartan [Micardis] 80 mg PO DAILY 02/27/20 Review of Systems 10-point ROS is otherwise unremarkable General: Weakness, Malaise Respiratory: Cough, Dry, Shortness of Breath, SOB with Excertion <Reji Willis - Last Filed: 02/27/20 00:56> Physical Examination - Physical Exam General: Alert, In no apparent distress, Oriented x3 HEENT: Atraumatic, Normocephalic Neck: Supple Respiratory: Diminished (Bilaterally), Other (Tachypneic , mildly labored breathing) Cardiovascular: Regular rate/rhythm, Normal S1 S2 Capillary refill: <2 Seconds Musculoskeletal: No contractures, No erythema, No tenderness Integumentary: No significant lesion, No tenderness/swelling, No erythema Neurological: Normal speech, Normal strength at 5/5 x4 extr, Normal tone, Sensation intact - Studies Laboratory Data (last 24 hrs) 02/26/20 23:00: PT 12.7 H, INR 1.08 02/26/20 23:00: WBC 11.7 H D, Hgb 13.6, Hct 41.8, Plt Count 404 02/26/20 23:00: Sodium 135 L, Potassium 4.3, BUN 21 H, Creatinine 1.18, Glucose 125 H, Magnesium 2.4, Total Bilirubin 0.5, AST 41 H, ALT 17, Alkaline Phosphatase 56 Microbiology Data (last 24 hrs): 02/26/20 23:15 Nasopharnyx Influenza Type A Antigen Screen - Final 02/26/20 23:15 Nasopharnyx Influenza Type B Antigen Screen - Final <Reji Willis - Last Filed: 02/27/20 00:56> Assessment and Plan - Plan Assessment Acute hypoxic respiratory failure secondary to COVID Hypertension Plan Acute hypoxic respiratory failure secondary to COVID: Trend CRP, ferritin levels, continue with IV steroids, oral supplements. Pulmonology consult in place. Titrate saturations to greater than 90% as much as possible. Patient is full code. DVT prophylaxis Lovenox 40 mg subcutaneous once daily. Hypertension: Obtain and continue home medications. Discharge Plan: Home Plan to discharge in: 48 Hours - Advance Directives Does patient have a Living Will: No Does patient have a Durable POA for Healthcare: No - Code Status/Comfort Care Code Status Assessed: Yes (Full code) Critical Care: No Time Spent Managing Pts Care (In Minutes): 55 <Reji Willis - Last Filed: 02/27/20 00:56> Date of Service: 02/27/20 Agree with findings as mentioned above. Patient remains hypoxic and at this time is requiring high-flow. His condition has worsened over the last couple of days. He has infiltrates bilaterally on his chest x-ray. Anticipate that his COVID-19 viral load is elevated. Will start Remdesivir <Catherine Royal - Last Filed: 02/28/20 08:49>
[2020-02-27 01:01] LABS: Blood Morphology Comment NOTED (NOT SEEN); Burr Cells 1+; Platelet Estimate ADEQ
[2020-02-27] MEDS ORDERED: ONDANSETRON 4 MG/2 ML VIAL IV PRN (02:19)
[2020-02-27] MEDS ORDERED: MELATONIN 5 MG TABLET PO PRN (02:19)
[2020-02-27] MEDS ORDERED: ACETAMINOPHEN 500 MG TAB PO PRN (02:19)
[2020-02-27] MEDS: METHYLPREDNISOLONE 40 MG INJ IV SCH ×3 (02:19→16:20)
--- NOTE | 2020-02-27 08:44 | RAD REPORT ---
EXAM DESCRIPTION: RAD - Chest Single View - 02/26/2020 10:43 pm CLINICAL HISTORY: SOB, COVID positive COMPARISON: Portable February 24 TECHNIQUE: AP portable chest image was obtained 02/26/2020 10:43 pm . FINDINGS: Lung volumes are low. Bilateral airspace opacification is present similar or slightly impr gabriel from the comparison. No progression suspected. Trachea is midline. Heart and vasculature are normal. No measurable pleural effusion and no pneumothorax. No acute bony abnormality seen. No acute aortic findings suspected. IMPRESSION: Shallow inspiration exam with bilateral airspace opacification similar or only fractiona lly improved.
[2020-02-27] MEDS: ENOXAPARIN 40 MG/0.4 ML SQ SCH (09:20)
[2020-02-27] MEDS: ASPIRIN EC 81 MG TAB PO SCH (09:21)
[2020-02-27] MEDS: ASCORBIC ACID 500 MG TABLET PO SCH ×3 (09:21→20:29)
[2020-02-27] MEDS: ZINC SULFATE 220 MG CAP PO SCH (09:21)
[2020-02-27] MEDS: VITAMIN D 1000 UNIT TAB PO SCH (09:21)
[2020-02-27] MEDS: HYDROCODONE/CHLORPHEN 5 ML/OSYR PO PRN ×2 (09:28→22:26)
--- NOTE | 2020-02-27 12:17 | P.CNS ---
Date of Consult: 02/27/20 Chief Complaint: COVID pneumonia History of Present Illness: Patient is 60 years of age admitted with progressive shortness of breath he came to the emergency room was discharged on steroids not get better the more short of breath and appeared in the emergency room he is doing better requiring about 40% FiO2 still complaining of cough Allergies Sulfa (Sulfonamide Antibiotics) Adverse Reaction (Verified 02/27/20 02:19) Nausea/Vomiting Home Medications: Telmisartan [Micardis] 80 mg PO DAILY 02/27/20 - Past Medical/Surgical History -: Hypertension -: Psoriasis -: Knee surgery -: Rotator cuff surgery -: Lumbar spine surgery Psychosocial/ Personal History: 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 - Social History Alcohol use: Yes CD- Drugs: No Caffeine use: Yes Place of Residence: Home Review of Systems Respiratory: Cough, Shortness of Breath Physical Examination Temp Pulse Resp BP Pulse Ox 97.6 F 58 22 H 136/61 90 L 02/27/20 08:00 02/27/20 08:00 02/27/20 08:00 02/27/20 08:00 02/27/20 08:00 Laboratory Data (last 24 hrs) 02/26/20 23:00: PT 12.7 H, INR 1.08 02/26/20 23:00: WBC 11.7 H D, Hgb 13.6, Hct 41.8, Plt Count 404 02/26/20 23:00: Sodium 135 L, Potassium 4.3, BUN 21 H, Creatinine 1.18, Glucose 125 H, Magnesium 2.4, Total Bilirubin 0.5, AST 41 H, ALT 17, Alkaline Phosphatase 56 - Problems (1) Acute respiratory failure due to severe acute respiratory syndrome coronavirus 2 (SARS-CoV-2) infection Current Visit: Yes Status: Acute Plan: Patient is 60 years of age admitted with acute respiratory failure from bowman virus he is improving oxygen requirements a less than 50% will evaluate tomorrow on nasal cannula oxygen possible discharge on O2 continue with prednisone 20 mg twice a day for at least a week patient has mild ground-glass changes on CT scan
[2020-02-27] MEDS ORDERED: Remdesivir 200 MG in NA CHLORIDE 0.9% 250 ML IV ONE (14:09)
--- NOTE | 2020-02-27 16:06 | EKG ---
Test Date: 2020-02-26 Test Time: 23:36:30 Transitional Living Specialist: OSWALDO MEASUREMENT RESULTS: Intervals: Rate: 62 VT: 160 QRSD: 88 QT: 384 QTc: 389 Dowling: P: 22 VT: 160 QRS: -11 T: 11 INTERPRETIVE STATEMENTS: Normal sinus rhythm Minimal voltage criteria for LVH, may be normal variant Possible Anterior infarct, age undetermined Abnormal ECG Compared to ECG 03/11/2004 07:54:00 Left ventricular hypertrophy now present Myocardial infarct finding now present Electronically Signed On 02-27-20 16:05:24 STAFF RESEARCH ASSOCIATE by Cecilio Siddiqui
[2020-02-27] MEDS ORDERED: NA CHLORIDE 0.9% 100 ML ONE (23:05)
[2020-02-28] MEDS: METHYLPREDNISOLONE 40 MG INJ IV SCH ×2 (00:04→08:40)
[2020-02-28] MEDS ORDERED: HYDROCODONE/CHLORPHEN 5 ML/OSYR PO ONE (04:24)
[2020-02-28 04:36] LABS: Absolute Lymphocytes (CBC) 0.7 K/uL (0.7-4.9); Basophils % 0.1 % (0-1.3); Hematocrit 40.5 % (39.6-49.0); Lymphocytes % 3.8 % (15.3-44.8); MPV 7.5 fL (7.6-11.3); RBC Red Blood Cell Count 4.68 M/uL (4.33-5.43)
[2020-02-28 05:00] LABS: C-Reactive Protein 45.8 mg/L (<3.00); Ferritin 426.3 ng/mL (26-388); Magnesium 2.3 mg/dL (1.8-2.4); Potassium 4.6 mmol/L (3.5-5.1)
[2020-02-28 07:43] LABS: Albumin 2.7 g/dL (3.4-5.0); Bilirubin Direct 0.1 mg/dL (0-0.2); Bilirubin Total 0.6 mg/dL (0.2-1.0)
[2020-02-28] MEDS: ASCORBIC ACID 500 MG TABLET PO SCH ×3 (08:39→21:01)
[2020-02-28] MEDS: ASPIRIN EC 81 MG TAB PO SCH (08:39)
[2020-02-28] MEDS: ZINC SULFATE 220 MG CAP PO SCH (08:39)
[2020-02-28] MEDS: VITAMIN D 1000 UNIT TAB PO SCH (08:39)
[2020-02-28] MEDS: ENOXAPARIN 40 MG/0.4 ML SQ SCH (08:39)
[2020-02-28] MEDS: Remdesivir 100 MG in NA CHLORIDE 0.9% 250 ML IV SCH (09:46)
[2020-02-28] MEDS: HYDROCODONE/CHLORPHEN 5 ML/OSYR PO PRN ×2 (11:12→23:02)
--- NOTE | 2020-02-28 12:51 | P.PN ---
Subjective Date of Service: 02/28/20 Chief Complaint: COVID pneumonia Patient is still complaining of shortness of breath is slightly worse more hypoxic Review of Systems General: Weakness Respiratory: Shortness of Breath Physical Examination - Vital Signs Temperature: 97 F Blood Pressure: 104/51 Pulse: 54 Respirations: 20 Pulse Ox (%): 86 - Physical Exam General: Alert, Moderate distress Assessment & Plan - Problems (Diagnosis) (1) Acute respiratory failure due to severe acute respiratory syndrome coronavirus 2 (SARS-CoV-2) infection Current Visit: Yes Status: Acute Plan: Patient admitted with respiratory failure from bowman virus I have increased dose of his Solu-Medrol fully anti coagulated full coal fully will be able to titrate his O2 down by tomorrow
[2020-02-28] MEDS: METHYLPREDNISOLONE 125 MG INJ IV SCH (16:21)
[2020-02-28] MEDS: APIXABAN 5 MG TABLET PO SCH (21:00)
[2020-02-28] MEDS ORDERED: APIXABAN 2.5 MG TABLET PO SCH (21:00)
[2020-02-29] MEDS: METHYLPREDNISOLONE 125 MG INJ IV SCH ×3 (00:34→16:18)
[2020-02-29 06:28] LABS: Absolute Lymphocytes (CBC) 0.6 K/uL (0.7-4.9); Basophils % 0.4 % (0-1.3); Hematocrit 38.6 % (39.6-49.0); Lymphocytes % 3.5 % (15.3-44.8); RBC Red Blood Cell Count 4.54 M/uL (4.33-5.43)
[2020-02-29 06:43] LABS: Albumin 2.6 g/dL (3.4-5.0); Bilirubin Direct 0.1 mg/dL (0-0.2); Bilirubin Total 0.5 mg/dL (0.2-1.0); C-Reactive Protein 18.6 mg/L (<3.00); Ferritin 382.6 ng/mL (26-388); Magnesium 2.5 mg/dL (1.8-2.4); Potassium 4.7 mmol/L (3.5-5.1); Protein, Total 6.6 g/dL (6.4-8.2)
[2020-02-29] MEDS: ZINC SULFATE 220 MG CAP PO SCH (08:04)
[2020-02-29] MEDS: ASPIRIN EC 81 MG TAB PO SCH (08:04)
[2020-02-29] MEDS: VITAMIN D 1000 UNIT TAB PO SCH (08:04)
[2020-02-29] MEDS: APIXABAN 5 MG TABLET PO SCH ×2 (08:05→21:00)
[2020-02-29] MEDS: ASCORBIC ACID 500 MG TABLET PO SCH ×3 (08:05→21:00)
[2020-02-29 08:18] LABS: Blood Morphology Comment NOTED (NOT SEEN); Burr Cells 1+; Platelet Estimate ADEQ; White Blood Cell Scan OK (OK)
--- NOTE | 2020-02-29 08:31 | P.PN ---
Subjective Date of Service: 02/28/20 Subjective: Improving (Patient clinically feels better. Continue on day 3 of Remdesivir) Review of Systems 10-point ROS is otherwise unremarkable Physical Examination - Vital Signs Temperature: 97.5 F Blood Pressure: 145/67 Pulse: 69 Respirations: 26 Pulse Ox (%): 92 - Physical Exam General: Alert, In no apparent distress, Oriented x3 HEENT: Atraumatic, PERRLA, EOMI Neck: Supple, JVD not distended Respiratory: Diminished, Expiratory wheezes Cardiovascular: Regular rate/rhythm, Normal S1 S2, No murmurs Gastrointestinal: Normal bowel sounds, Soft and benign, Non-distended, No tenderness Musculoskeletal: No clubbing, No swelling, No tenderness Neurological: Normal strength at 5/5 x4 extr, Sensation intact, Cranial nerves 3-12 intact - Studies Medications List Reviewed: Yes Assessment & Plan - Problems (Diagnosis) (1) Acute respiratory failure due to severe acute respiratory syndrome coronavirus 2 (SARS-CoV-2) infection Current Visit: Yes Status: Acute (2) Hypoxemia Current Visit: Yes Status: Acute - Plan 1. Continue with IV antibiotics 2. Continue Remdesivir 3. Repeat chest x-ray is symptoms are progressively worsening 4. O2 per protocol 5. Pulmonary consultation 6. Continue with steroids and albuterol inhaler as needed 7. O2 per protocol 8. Monitor LFTs 9. Monitor inflammatory markers 10. GI and DVT prophylaxis Discharge Plan: Home Plan to discharge in: Greater than 2 days - Advance Directives Does patient have a Living Will: Yes Does patient have a Durable POA for Healthcare: Yes - Code Status/Comfort Care Code Status Assessed: Yes Code Status: Full Code Critical Care: No Time Spent Managing PTS Care (In Minutes): 30
[2020-02-29] MEDS: Remdesivir 100 MG in NA CHLORIDE 0.9% 250 ML IV SCH (09:19)
--- NOTE | 2020-02-29 12:06 | P.PN ---
Subjective Date of Service: 02/29/20 Chief Complaint: COVID pneumonia Patient is improving still hypoxic oxygen is continue to be weaned down Review of Systems General: Weakness Respiratory: Shortness of Breath Physical Examination - Vital Signs Temperature: 97.5 F Blood Pressure: 145/67 Pulse: 69 Respirations: 26 Pulse Ox (%): 92 - Studies Medications List Reviewed: Yes Assessment & Plan - Problems (Diagnosis) (1) Acute respiratory failure due to severe acute respiratory syndrome coronavirus 2 (SARS-CoV-2) infection Current Visit: Yes Status: Acute Plan: Respiratory failure patient is clinically improving FiO2 is now down to less than 50% will try nasal cannula oxygen possible discharge tomorrow on prednisone full anticoagulation
[2020-02-29] MEDS: HYDROCODONE/CHLORPHEN 5 ML/OSYR PO PRN (13:03)
[2020-03-01] MEDS: METHYLPREDNISOLONE 125 MG INJ IV SCH ×3 (01:00→18:42)
[2020-03-01 04:09] VITALS: BMI 37.2
[2020-03-01 07:28] LABS: Albumin 2.5 g/dL (3.4-5.0); Bilirubin Direct 0.1 mg/dL (0-0.2); Bilirubin Total 0.5 mg/dL (0.2-1.0); Protein, Total 6.3 g/dL (6.4-8.2)
[2020-03-01] MEDS: VITAMIN D 1000 UNIT TAB PO SCH (08:40)
[2020-03-01] MEDS: ASPIRIN EC 81 MG TAB PO SCH (08:41)
[2020-03-01] MEDS: ASCORBIC ACID 500 MG TABLET PO SCH ×3 (08:41→20:36)
[2020-03-01] MEDS: HYDROCODONE/CHLORPHEN 5 ML/OSYR PO PRN ×2 (08:41→20:36)
[2020-03-01] MEDS: ZINC SULFATE 220 MG CAP PO SCH (08:41)
[2020-03-01] MEDS: APIXABAN 5 MG TABLET PO SCH ×2 (08:45→20:36)
[2020-03-01] MEDS: Remdesivir 100 MG in NA CHLORIDE 0.9% 250 ML IV SCH (10:10)
[2020-03-01] MEDS ORDERED: ALBUTEROL INHALER 60 PUFF/8 GM IH PRN (15:24)
[2020-03-02] MEDS: METHYLPREDNISOLONE 125 MG INJ IV SCH ×2 (00:10→08:16)
[2020-03-02 07:07] LABS: Albumin 2.4 g/dL (3.4-5.0); Bilirubin Direct 0.1 mg/dL (0-0.2); Bilirubin Total 0.4 mg/dL (0.2-1.0); Protein, Total 6.1 g/dL (6.4-8.2)
[2020-03-02 07:12] LABS: C-Reactive Protein 5.8 mg/L (<3.00); Ferritin 318.1 ng/mL (26-388)
[2020-03-02] MEDS: VITAMIN D 1000 UNIT TAB PO SCH (08:16)
[2020-03-02] MEDS: ASCORBIC ACID 500 MG TABLET PO SCH ×3 (08:16→21:32)
[2020-03-02] MEDS: ZINC SULFATE 220 MG CAP PO SCH (08:16)
[2020-03-02] MEDS: ASPIRIN EC 81 MG TAB PO SCH (08:16)
[2020-03-02] MEDS: APIXABAN 5 MG TABLET PO SCH ×2 (08:16→21:32)
[2020-03-02] MEDS: Remdesivir 100 MG in NA CHLORIDE 0.9% 250 ML IV SCH (09:27)
[2020-03-02] MEDS: HYDROCODONE/CHLORPHEN 5 ML/OSYR PO PRN ×2 (09:46→22:40)
--- NOTE | 2020-03-02 09:58 | P.PN ---
Subjective Date of Service: 03/02/20 Subjective: Improving (Patient doing well with no new complaints. Complete Remdesivir today. On the 35 to 40% FiO2. Continue weaning down.) Review of Systems 10-point ROS is otherwise unremarkable Physical Examination - Vital Signs Temperature: 96.9 F Blood Pressure: 134/64 Pulse: 65 Respirations: 16 Pulse Ox (%): 94 - Physical Exam General: Alert, In no apparent distress, Oriented x3 Respiratory: Clear to auscultation bilaterally, Diminished Cardiovascular: Regular rate/rhythm, Normal S1 S2, No murmurs Gastrointestinal: Normal bowel sounds, Soft and benign, Non-distended, No tenderness Musculoskeletal: No clubbing, No swelling, No tenderness Lymphatics: No axilla or inguinal lymphadenopathy - Studies Medications List Reviewed: Yes Assessment & Plan - Problems (Diagnosis) (1) Acute respiratory failure due to severe acute respiratory syndrome coronavirus 2 (SARS-CoV-2) infection Current Visit: Yes Status: Acute (2) Hypoxemia Current Visit: Yes Status: Acute - Plan 1. Continue with IV antivirals 2. Finished Remdesivir 3. Weaning off high-flow 4. Continue with steroids and albuterol inhaler as needed 5. O2 per protocol 6. Monitor LFTs 7. Monitor inflammatory markers every 48 hrs 8. GI and DVT prophylaxis Discharge Plan: Home Plan to discharge in: Greater than 2 days - Advance Directives Does patient have a Living Will: Yes Does patient have a Durable POA for Healthcare: Yes - Code Status/Comfort Care Code Status: Full Code Critical Care: No Time Spent Managing PTS Care (In Minutes): 35
--- NOTE | 2020-03-02 09:59 | P.PN ---
Subjective Date of Service: 03/01/20 Patient continues to do well. His appetite is back to normal. On day 4 of 5 of Remdesivir Review of Systems 10-point ROS is otherwise unremarkable Physical Examination - Vital Signs Temperature: 96.9 F Blood Pressure: 134/64 Pulse: 65 Respirations: 16 Pulse Ox (%): 94 - Physical Exam General: Alert, In no apparent distress, Oriented x3 Respiratory: Diminished, Rhonchi/gurgles Cardiovascular: Regular rate/rhythm, Normal S1 S2, No murmurs Gastrointestinal: Normal bowel sounds, Soft and benign, Non-distended Musculoskeletal: No clubbing, No swelling - Studies Medications List Reviewed: Yes Assessment & Plan - Problems (Diagnosis) (1) Acute respiratory failure due to severe acute respiratory syndrome coronavirus 2 (SARS-CoV-2) infection Current Visit: Yes Status: Acute (2) Hypoxemia Current Visit: Yes Status: Acute - Plan 1. Continue with IV antivirals 2. Patient is on day 4 of 5 of Remdesivir 3. Weaning off high-flow; on 45% 4. Continue with steroids and albuterol inhaler as needed 5. O2 per protocol 6. Monitor LFTs 7. Monitor inflammatory markers every 48 hrs 8. GI and DVT prophylaxis Discharge Plan: Home Plan to discharge in: Greater than 2 days - Advance Directives Does patient have a Living Will: Yes Does patient have a Durable POA for Healthcare: Yes - Code Status/Comfort Care Code Status: Full Code Critical Care: No Time Spent Managing PTS Care (In Minutes): 35
--- NOTE | 2020-03-02 10:01 | P.PN ---
Subjective Date of Service: 02/29/20 Patient feeling better. Out of bed into a chair today. On day 35 of Remdesivir; continue on IV steroids as well. Review of Systems 10-point ROS is otherwise unremarkable Physical Examination - Vital Signs Temperature: 96.9 F Blood Pressure: 134/64 Pulse: 65 Respirations: 16 Pulse Ox (%): 94 - Physical Exam General: Alert, In no apparent distress, Oriented x3 Respiratory: Diminished Gastrointestinal: Soft and benign, Non-distended, No tenderness Musculoskeletal: No clubbing, No swelling, No tenderness Neurological: Normal strength at 5/5 x4 extr, Sensation intact, Cranial nerves 3-12 intact Lymphatics: No axilla or inguinal lymphadenopathy - Studies Medications List Reviewed: Yes Assessment & Plan - Problems (Diagnosis) (1) Acute respiratory failure due to severe acute respiratory syndrome coronavirus 2 (SARS-CoV-2) infection Current Visit: Yes Status: Acute (2) Hypoxemia Current Visit: Yes Status: Acute - Plan Continue with plan of care as mentioned below 1. Continue with IV antivirals 2. Patient is on day 3 of 5 of Remdesivir 3. Weaning off high-flow; on 50%; still appears a little tachypneic today 4. Continue with steroids and albuterol inhaler as needed 5. O2 per protocol 6. Monitor LFTs 7. Monitor inflammatory markers every 48 hrs 8. GI and DVT prophylaxis Discharge Plan: Home Plan to discharge in: Greater than 2 days - Advance Directives Does patient have a Living Will: Yes Does patient have a Durable POA for Healthcare: Yes - Code Status/Comfort Care Code Status: Full Code Critical Care: No Time Spent Managing PTS Care (In Minutes): 35
--- NOTE | 2020-03-02 10:28 | P.PN ---
Subjective Date of Service: 03/02/20 Chief Complaint: COVID pneumonia Patient is improving shortness of breath is better oxygenation satisfactory Physical Examination - Vital Signs Temperature: 96.9 F Blood Pressure: 134/64 Pulse: 65 Respirations: 16 Pulse Ox (%): 94 - Physical Exam General: Alert, Oriented x2, Cooperative Respiratory: Clear to auscultation bilaterally - Studies Medications List Reviewed: Yes Assessment & Plan - Problems (Diagnosis) (1) Acute respiratory failure due to severe acute respiratory syndrome coronavirus 2 (SARS-CoV-2) infection Current Visit: Yes Status: Acute Plan: Doing much better titrate O2 to a sat of 90% with 4 L of nasal cannula oxygen plan for discharge on prednisone 20 b.i.d. for a week then 10 b.i.d. continue with anticoagulation ferritin levels are declining decrease Solu-Medrol to 40 mg IV t.i.d.
[2020-03-02] MEDS: METHYLPREDNISOLONE 40 MG INJ IV SCH (18:23)
[2020-03-03] MEDS: METHYLPREDNISOLONE 40 MG INJ IV SCH ×3 (00:24→16:32)
[2020-03-03] MEDS: ASPIRIN EC 81 MG TAB PO SCH (08:42)
[2020-03-03] MEDS: ASCORBIC ACID 500 MG TABLET PO SCH ×3 (08:42→21:11)
[2020-03-03] MEDS: ZINC SULFATE 220 MG CAP PO SCH (08:42)
[2020-03-03] MEDS: VITAMIN D 1000 UNIT TAB PO SCH (08:42)
[2020-03-03] MEDS: APIXABAN 5 MG TABLET PO SCH ×2 (11:09→21:11)
[2020-03-03] MEDS: HYDROCODONE/CHLORPHEN 5 ML/OSYR PO PRN (16:44)
[2020-03-03] MEDS ORDERED: INFLUENZA VACCINE (for 3y+) 0.5 ML DOSE IMVAC ONE (17:00)
--- NOTE | 2020-03-03 18:50 | P.PN ---
Subjective Date of Service: 03/03/20 Chief Complaint: COVID pneumonia Patient is on 4 L nasal cannula oxygen although he does experience significant desat on minimal exertion otherwise he is feeling better Review of Systems General: Weakness Respiratory: Shortness of Breath Physical Examination - Vital Signs Temperature: 97.5 F Blood Pressure: 120/58 Pulse: 60 Respirations: 18 Pulse Ox (%): 100 - Physical Exam General: Alert, Oriented x2 Respiratory: Diminished, Crackles/rales - Studies Microbiology Data (last 24 hrs): 02/26/20 23:15 Blood - Blood Aerobic Blood Culture - Final No growth in 5 days. 02/26/20 23:15 Blood - Blood Anaerobic Blood Culture - Final No growth in 5 days. 02/26/20 23:00 Blood - Blood Aerobic Blood Culture - Final No growth in 5 days. 02/26/20 23:00 Blood - Blood Anaerobic Blood Culture - Final No growth in 5 days. Medications List Reviewed: Yes Assessment & Plan - Problems (Diagnosis) (1) Acute respiratory failure due to severe acute respiratory syndrome coronavirus 2 (SARS-CoV-2) infection Current Visit: Yes Status: Acute Plan: Patient admitted respiratory failure due to bowman virus possible discharge home tomorrow he is going to experience desat on exertion and patient can increase his O2 to 6 L a min inflammatory parameters are improving recommend discharge tomorrow on either prednisone 20 b.i.d. 0 3 mg of Decadron twice a day and then wean him down for anticoagulation
[2020-03-04] MEDS: METHYLPREDNISOLONE 40 MG INJ IV SCH ×3 (01:02→16:13)
[2020-03-04] MEDS: HYDROCODONE/CHLORPHEN 5 ML/OSYR PO PRN ×2 (01:02→13:21)
--- NOTE | 2020-03-04 04:39 | P.PN ---
Subjective Date of Service: 03/03/20 Patient has completed Remdesivir; we got patient out of bed and ambulated by the chair and patient dropped his oxygen saturations to 70% on 4 L. Patient became severely winded and was been over trying to catch his breath. Patient was going to go home with home oxygen today but the [facility] patient does not have any more oxygen concentrators. hopefully he continues to gradually improve and his inflammatory markers are stable to where he can go home in a.m.. Review of Systems 10-point ROS is otherwise unremarkable Physical Examination - Vital Signs Temperature: 98 F Blood Pressure: 117/56 Pulse: 67 Respirations: 16 Pulse Ox (%): 88 - Physical Exam General: Alert, In no apparent distress, Oriented x3, Moderate distress Respiratory: Normal air movement, Diminished Cardiovascular: Regular rate/rhythm, Normal S1 S2, No murmurs Gastrointestinal: Normal bowel sounds, Soft and benign, Non-distended, No tenderness Musculoskeletal: No clubbing, No swelling Neurological: Normal gait - Studies Microbiology Data (last 24 hrs): 02/26/20 23:15 Blood - Blood Aerobic Blood Culture - Final No growth in 5 days. 02/26/20 23:15 Blood - Blood Anaerobic Blood Culture - Final No growth in 5 days. 02/26/20 23:00 Blood - Blood Aerobic Blood Culture - Final No growth in 5 days. 02/26/20 23:00 Blood - Blood Anaerobic Blood Culture - Final No growth in 5 days. Medications List Reviewed: Yes Assessment & Plan - Problems (Diagnosis) (1) Acute respiratory failure due to severe acute respiratory syndrome coronavirus 2 (SARS-CoV-2) infection Current Visit: Yes Status: Acute (2) Hypoxemia Current Visit: Yes Status: Acute - Plan Continue with plan of care as mentioned below 1. Finished Remdesivir 2. Weaned off high flow 3. Continue with steroids and albuterol inhaler as needed 4. O2 per protocol 5. Monitor LFTs 6. Monitor inflammatory markers every 48 hrs 7. GI and DVT prophylaxis Discharge Plan: Home Plan to discharge in: 24 Hours - Advance Directives Does patient have a Living Will: No Does patient have a Durable POA for Healthcare: Yes - Code Status/Comfort Care Code Status: Full Code Critical Care: No Time Spent Managing PTS Care (In Minutes): 25
[2020-03-04 06:38] LABS: Absolute Lymphocytes (CBC) 0.4 K/uL (0.7-4.9); Basophils % 0.1 % (0-1.3); Hematocrit 42.5 % (39.6-49.0); Lymphocytes % 2.1 % (15.3-44.8); RBC Red Blood Cell Count 4.94 M/uL (4.33-5.43)
[2020-03-04] MEDS: ASPIRIN EC 81 MG TAB PO SCH (08:05)
[2020-03-04] MEDS: ZINC SULFATE 220 MG CAP PO SCH (08:05)
[2020-03-04] MEDS: ASCORBIC ACID 500 MG TABLET PO SCH ×3 (08:05→21:39)
[2020-03-04] MEDS: VITAMIN D 1000 UNIT TAB PO SCH (08:05)
[2020-03-04] MEDS: APIXABAN 5 MG TABLET PO SCH ×2 (08:06→21:39)
[2020-03-04 09:05] LABS: C-Reactive Protein 3.85 mg/L (<3.00); Ferritin 415.7 ng/mL (26-388); Magnesium 2.6 mg/dL (1.8-2.4); Potassium 5.2 mmol/L (3.5-5.1)
[2020-03-04 09:45] LABS: Blood Morphology Comment NOT SEEN (NOT SEEN); Platelet Estimate INCR; White Blood Cell Scan OK (OK)
--- NOTE | 2020-03-04 16:41 | P.PN ---
Subjective Date of Service: 03/04/20 Chief Complaint: COVID pneumonia Subjective: Improving Physical Examination - Vital Signs Temperature: 97.5 F Blood Pressure: 99/54 Pulse: 75 Respirations: 19 Pulse Ox (%): 90 - Physical Exam General: Alert, In no apparent distress, Cooperative HEENT: Atraumatic Neck: Supple Respiratory: Other (On 4 L per nasal cannula) Cardiovascular: Normal pulses - Studies Medications List Reviewed: Yes Assessment & Plan Discharge Plan: Home Plan to discharge in: 24 Hours Physician Review Additional Text: Impression: Dyspnea secondary to acute respiratory failure related to COVID 19 bilateral pneumonia Plan: Patient has improved. Continue current medications. Continue to monitor lab closely. Case discussed with pulmonology per patient will require home oxygen at discharge. Will try to arrange today. Anticipate improvement over the next 24 hr. Consider home discharge if oxygen can be arranged. Time Spent Managing Pts Care (In Minutes): 55
[2020-03-05] MEDS: METHYLPREDNISOLONE 40 MG INJ IV SCH ×2 (00:42→08:31)
[2020-03-05 04:29] LABS: Ferritin 374.7 ng/mL (26-388)
[2020-03-05 04:42] LABS: C-Reactive Protein < 2.90 mg/L (<3.00)
--- NOTE | 2020-03-05 06:32 | RAD REPORT ---
EXAM DESCRIPTION: Angus Single View03/05/2020 6:04 am CLINICAL HISTORY: Chest pain COMPARISON: February 28 FINDINGS: Slight worsening in the bilateral pulmonary opacities likely pneumonia Heart is normal size
[2020-03-05] MEDS: APIXABAN 5 MG TABLET PO SCH (08:31)
[2020-03-05] MEDS: ASPIRIN EC 81 MG TAB PO SCH (08:31)
[2020-03-05] MEDS: ASCORBIC ACID 500 MG TABLET PO SCH ×2 (08:31→14:01)
[2020-03-05] MEDS: ZINC SULFATE 220 MG CAP PO SCH (08:31)
[2020-03-05] MEDS: VITAMIN D 1000 UNIT TAB PO SCH (08:31)
[2020-03-05 12:33] VITALS: O2SAT 90
[2020-03-05 12:52] VITALS: BP 110/56; TEMP 97.2
--- NOTE | 2020-03-05 13:43 | P.DS ---
Admission Date: 02/27/20 Discharge Date: 03/05/20 Primary Care Provider: unknown Disposition: ROUTINE DISCHARGE Discharge Condition: GOOD Reason for Admission: COVID pneumonia Consultations: Pulmonary-Dr. Daigle Procedures: Medical problem list: Dyspnea secondary to acute respiratory failure related to COVID 19 bilateral pn [place] Hypertension Brief History of Present Illness: 60-year-old male presented to the emergency room with increasing shortness of breath. Patient was recently test positive for COVID 19. Patient found to be hypoxic. Patient required admission for further treatment. Hospital Course: Patient presented with dyspnea secondary to respiratory failure related to COVID 19 bilateral pneumonia. Patient was admitted for treatment. Patient was seen by pulmonology. His progress was slow but eventually improved. Inflammatory markers including CRP and ferritin improved. Patient currently on oxygen at 3 L per nasal cannula. At discharge patient will continue with prednisone 20 mg 1 pill twice daily for 7 days then 1 pill daily for 7 days. The patient will also continue with Eliquis 5 mg 1 pill twice daily for 10 days for PE/DVT prophylaxis. The patient will also continue with vitamin-C, vitamin-D, and zinc supplementation. At discharge patient will continue with oxygen per nasal cannula at 3 L/min. Recommend follow up with pulmonology in 1 week to follow up this hospitalization and continue his care. Education on COVID 19 isolation and guidelines will be provided. Patient with hypertension. Patient may continue with his current medication of Micardis 80 mg daily. Recommend to maintain blood pressure less than 130/80. May need to hold medication if blood pressure systolic less than 110. Vital Signs/Physical Exam: Temp Pulse Resp BP Pulse Ox 97.2 F 59 19 110/56 L 97 03/05/20 12:00 03/05/20 12:00 03/05/20 12:00 03/05/20 12:00 03/05/20 12:00 General: Alert, In no apparent distress, Oriented x3, Cooperative HEENT: Atraumatic Neck: Supple Respiratory: Other (Patient appears stable. No respiratory distress noted on 3 L per nasal cannula) Cardiovascular: Normal pulses Neurological: Normal speech, Normal strength at 5/5 x4 extr, Normal tone, Normal affect Laboratory Data at Discharge: WBC 18.5 K/uL (4.3-10.9) H 03/04/20 06:20 Hgb 14.3 g/dL (13.6-17.9) 03/04/20 06:20 Hct 42.5 % (39.6-49.0) 03/04/20 06:20 Plt Count 487 K/uL (152-406) H 03/04/20 06:20 PT 12.7 SECONDS (9.5-12.5) H 02/26/20 23:00 INR 1.08 02/26/20 23:00 Sodium 136 mmol/L (136-145) 03/04/20 08:18 Potassium 5.2 mmol/L (3.5-5.1) H 03/04/20 08:18 BUN 27 mg/dL (7-18) H 03/04/20 08:18 Creatinine 1.05 mg/dL (0.55-1.3) 03/04/20 08:18 Glucose 125 mg/dL (74-106) H 03/04/20 08:18 Magnesium 2.6 mg/dL (1.8-2.4) H 03/04/20 08:18 Total Bilirubin 0.4 mg/dL (0.2-1.0) 03/02/20 06:19 AST 22 U/L (15-37) 03/02/20 06:19 ALT 21 U/L (12-78) 03/02/20 06:19 Alkaline Phosphatase 43 U/L (45-117) L 03/02/20 06:19 Home Medications: Telmisartan [Micardis] 80 mg PO DAILY 02/27/20 Albuterol Inhaler [Ventolin Inhaler*] 2 puff IH Q6H PRN #1 hfa.aer.ad 03/03/20 Apixaban [Eliquis] 5 mg PO BID #20 tablet 03/03/20 Ascorbic Acid [Vitamin C*] 500 mg PO TID #90 tablet 03/03/20 Cholecalciferol (Vitamin D3) [Vitamin D 1000 Iu Tab*] 2,000 unit PO DAILY #30 tab 03/03/20 Hydrocodone/Chlorphen Polis [Tussionex Oral Susp*] 5 ml PO BID PRN #100 ml 03/03/20 Melatonin 5 mg PO BEDTIME PRN PRN #14 tablet 03/03/20 Zinc Sulfate [Zinc Sulfate*] 220 mg PO DAILY #30 cap 03/03/20 predniSONE [Prednisone*] 20 mg PO SEECOM #21 tab 03/05/20 New Medications: Apixaban [Eliquis] 5 mg PO BID #20 tablet Melatonin 5 mg PO BEDTIME PRN PRN #14 tablet PRN Reason: Insomnia predniSONE [Prednisone*] 20 mg PO SEECOM #21 tab Hydrocodone/Chlorphen Polis [Tussionex Oral Susp*] 5 ml PO BID PRN #100 ml PRN Reason: Cough Albuterol Inhaler [Ventolin Inhaler*] 2 puff IH Q6H PRN #1 hfa.aer.ad PRN Reason: Shortness Of Breath Ascorbic Acid [Vitamin C*] 500 mg PO TID #90 tablet Cholecalciferol (Vitamin D3) [Vitamin D 1000 Iu Tab*] 2,000 unit PO DAILY #30 tab Zinc Sulfate [Zinc Sulfate*] 220 mg PO DAILY #30 cap Patient Discharge Instructions: Recommend follow up with PCP in 1 week. Patient presented with dyspnea secondary to respiratory failure related to COVID 19 bilateral pneumonia. Patient was admitted for treatment. Patient was seen by pulmonology. His progress was slow but eventually improved. Inflammatory markers including CRP and ferritin improved. Patient currently on oxygen at 3 L per nasal cannula. At discharge patient will continue with prednisone 20 mg 1 pill twice daily for 7 days then 1 pill daily for 7 days. The patient will also continue with Eliquis 5 mg 1 pill twice daily for 10 days for PE/DVT prophylaxis. The patient will also continue with vitamin-C, vitamin-D, and zinc supplementation. At discharge patient will continue with oxygen per nasal cannula at 3 L/min. Recommend follow up with pulmonology in 1 week to follow up this hospitalization and continue his care. Education on COVID 19 isolation and guidelines will be provided. Patient with hypertension. Patient may continue with his current medication of Micardis 80 mg daily. Recommend to maintain blood pressure less than 130/80. May need to hold medication if blood pressure systolic less than 110. Diet: AHA Activity: Fall precautions Followup: Unknown,U [Primary Care Provider] - Time spent managing pt's care (in minutes): 55
== END 2020-03-05 15:45 | disposition home or self-care (01) | DRG 177 ==
LOC: ER 21:59 → ERHOLD 02-27 00:18 → 4TH 02-27 05:18
PROVIDERS: ADMIT Hospitalist; ATTEND Family Medicine
PROC: XW033E5 Introduction of Remdesivir Anti-infective into Peripheral Vein, Percutaneous Approach, New Technology Group 5 (ICD-10-PCS; principal; 2020-02-27)
PROC: 30233R1 Transfusion of Nonautologous Platelets into Peripheral Vein, Percutaneous Approach (ICD-10-PCS; 2020-02-27)
DX: U07.1 COVID-19 (principal); J80 Acute respiratory distress syndrome; J12.82 Pneumonia due to coronavirus disease 2019; I10 Essential (primary) hypertension; Z79.899 Other long term (current) drug therapy; Z88.1 Allergy status to other antibiotic agents; Z79.01 Long term (current) use of anticoagulants; Z79.52 Long term (current) use of systemic steroids
CPT/HCPCS: 36415; 71045; 80048; 80053; 80076; 82248; 82728; 83605; 83615; 83735; 83880; 84145; 84484; 85025; 85379; 85610; 86140; 86900; 86901; 86927; 87040; 87804; 93005; 94002; 94003; 94660; 94760; 96365; 96375; 99284; 99285; J1650; J2920; J2930; J7030; J7050; U0003